=== PATIENT | female | born 1970 | race Caucasian/White ===

== ENCOUNTER 2016-07-21 22:55 | Emergency (ER) | payer OTHER ==
[~2016-07-21] VITALS: Ht 162.6 cm; Wt 101.3 kg
[~2016-07-21 22:55] MED LIST: WARF-60 PO
[2016-07-21 23:14] VITALS: BP 145/90; PULSE 84; RESP 20; TEMP 98.9; O2SAT 95
[2016-07-22] MEDS ORDERED: CLINDAMYCIN INJ 900 MG in SODIUM CHLORIDE 0.9% INJ 100 ML IV ONE ×2
[2016-07-22] MEDS ORDERED: TETANUS/DIPHTHERIA TOXOID ADULT 0.5 ML VIAL IM ONE
--- NOTE | 2016-07-22 00:15 | PD ---
HPI Chief Complaint: Bite or Sting Time Seen by Provider: 23:56 Travel History International Travel<30 days: No Contact w/Intl Traveler<30days: No Traveled to known affect area: No History of Present Illness HPI The patient is a 45-year-old right-hand dominant female that was breaking up a dogfight between 2 of her dogs, one of which is a pit bull. The dog's, she states, are fully up-to-date on immunizations. She states she has not had a tetanus shot in over 10 years. She suffered a total of 2 bites, one on the torso and one on the volar aspects of her left hand. She has had a hysterectomy , there is no possibility of . PFSH Past Medical History Cancer: No Cardiovascular Problems: No Diabetes: Yes Patient Takes Glucophage: No Glaucoma: No Hepatitis: No Hiatal Hernia: No Hypertension: No Medical other: Yes (GERD) Respiratory: No Thyroid Disease: No Tetanus Vaccination: Unknown Influenza Vaccination: Yes ?: Not Past Surgical History Gynecologic Surgery: Yes (TUBAL LIG. , ENDOMETRIAL ABLATION) Hysterectomy: Yes Oral Surgery: Yes (LIP REPAIR) Other Surgery: Yes Social History Alcohol Use: Yes (OACCAS.) Tobacco Use: No Substance Use: No Allergies-Medications (Allergen,Severity, Reaction): Coded Allergies: Penicillin (Verified Allergy, Severe, HIVES, 06/20/16) Sulfa (Verified Allergy, Severe, HIVES, 06/20/16) Reported Meds & Prescriptions Reported Meds & Active Scripts Active Warfarin 6 Mg Tab 6 Mg PO DAILY Review of Systems Except as stated in HPI: all other systems reviewed are Neg Physical Exam Narrative GENERAL: Well-nourished, well-developed patient in slight apparent distress with her dog bites on her left hand. Her vital signs show blood pressure 145/ 90 but are otherwise normal. SKIN: Focused skin assessment warm/dry. There is a dog bite on the extensor surface of the left hand near the extensor tendon of the fourth finger but she has good extensor tendon function of the fourth finger. There is a dog bite on the volar aspect of her left hand again near the flexor tendon in the palm, near the hypo-thenar eminence. HEAD: Normocephalic. EYES: No scleral icterus. No injection or drainage. NECK: Supple, trachea midline. No JVD or lymphadenopathy. CARDIOVASCULAR: Regular rate and rhythm without murmurs, gallops, or rubs. RESPIRATORY: Breath sounds equal bilaterally. No accessory muscle use. GASTROINTESTINAL: Abdomen soft, non-tender, nondistended. MUSCULOSKELETAL: No cyanosis, or edema. BACK: Nontender without obvious deformity. No CVA tenderness. Data Data Last Documented VS Vital Signs Date Time Temp Pulse Resp B/P Pulse Ox O2 Delivery O2 Flow Rate FiO2 07/21/16 23:14 98.9 84 20 145/90 95 Orders Clindamycin Inj (Cleocin Inj) (07/22/16 00:00) Tetanus/Diphtheria Tox Adult (Tetanus/Di (07/22/16 00:00) MDM Medical Decision Making Medical Screen Exam Complete: Yes Emergency Medical Condition: Yes Medical Record Reviewed: Yes Differential Diagnosis Dog bite, tendon sheath infection Narrative Course The patient has a dog bite. At this time there is minimal risk of tendon sheath infection and the patient will be put on Cleocin 300 mg 4 times daily. She should return to emergency department if better. Diagnosis Primary Impression: Dog bite of hand without complication Additional Instructions: Return to emergency department if you have any problems with her hand. The antibiotic is one tablet 4 times daily. Elevate your hand night and whenever possible above your heart, this improved circulation of the blood and lymph system. Med/Other Pt SpecificInfo: Prescription(s) given Scripts Clindamycin (Cleocin)300 Mg [id number] Mg PO Q6H 10 Days Ref 0 Prov:Al Wallace MD 07/22/16 Disposition: 01 DISCHARGE HOME Condition: Stable Al Wallace MD Jul 22, 2016 00:15
[2016-07-22] MEDS ORDERED: CLEO300C2 PO (01:12)
[2016-07-22 01:51] VITALS: BP 144/90; PULSE 83; RESP 18; O2SAT 95
[2016-07-27] MEDS ORDERED: WARF4TAB52 PO (11:12)
[2016-08-10] MEDS ORDERED: WARF-21 PO (11:41)
== END 2016-07-22 02:10 | disposition home or self-care (01) ==
LOC: PHED 22:55
DX: S61.452A Open bite of left hand, initial encounter (principal); E11.9 Type 2 diabetes mellitus without complications; W54.0XXA Bitten by dog, initial encounter; Y92.009 Unspecified place in unspecified non-institutional (private) residence as the place of occurrence of the external cause; Z23 Encounter for immunization
CPT/HCPCS: 90471; 90714; 96365